=== PATIENT | female | born 1995 | race Asian ===

== ENCOUNTER 2016-10-01 18:05 | Emergency (ER) | payer OTHER ==
[~2016-10-01] VITALS: Ht 167.6 cm; Wt 57.5 kg
[2016-10-01 18:09] VITALS: TEMP 37; Ht 167.6 cm; Wt 57.5 kg
[2016-10-01] MEDS ORDERED: SODIUM CHLORIDE 0.9% 1000ML 1,000 ML IV STA (18:21)
[2016-10-01] MEDS ORDERED: HYOSCYAMINE SULFATE 0.125 MG SL TAB SL STA (18:21)
[2016-10-01 18:51] LABS: BASO % 0.9 %; BASO ABS # 0.04 K/uL (0-0.2); COMPLETE YES; EOS % 0.9 %; HEMATOCRIT 37.5 % (37-47); LYMPH % 49.4 %; LYMPH ABS # 2.32 K/uL (1.2-3.4); MEAN CELL VOLUME 90.6 fL (80-100); MEAN CORPUSCULAR HEMOGLOBIN 32.1 pg (25-34); MEAN CORPUSCULAR HGB CONC 35.5 g/dl (32-36); MEAN PLATELET VOLUME 9.7 fL (7.4-10.4); MONO % 7.2 %; NEUT % 41.6 %; PLATELET COUNT 214 K/uL (130-400); RED BLOOD COUNT 4.14 M/uL (4.2-5.4)
[2016-10-01 19:07] LABS: BUN/CREATININE RATIO 10.4 (10-20); CALCIUM 8.7 mg/dl (8.5-10.1); CREATININE 0.79 mg/dl (0.60-1.20); POTASSIUM 3.6 mmol/L (3.5-5.1)
[2016-10-01 19:46] VITALS: BP 112/81; PULSE 61; O2SAT 100
--- NOTE | 2016-10-01 19:47 | EMERGENCY ROOM VISIT NOTE ---
History Report prepared by Blaire: Alycia Ratliff Under the Supervision of: Dr. Aren Wright M.D. First contact with patient: 18:15 Chief Complaint: DIARRHEA Stated Complaint: DIARRHEA Nursing Triage Summary: Triage note: pt reports "i have serious diarrhea since last night." pt offered translation services and declined in triage. History of Present Illness The patient is a 21 year old female who presents to the Emergency Room with complaints of intermittent diarrhea beginning last night. The patient states that she has had about 8 episodes of watery diarrhea since last night. She complains of a headache and some "swelling" abdominal pain that was more severe last night. She denies any vomiting, nausea, fever, recent antibiotics, and chance of . The patient reports that she took anti-diarrheal pills and she had movement of her stomach and thinks that it might be working. She notes that she went to [place] 2 weeks ago for 3 days and was in the city. The patient states that she had a stomach bug 4 years ago with vomiting. She denies anyone around her having similar symptoms or being sick. Source of History: patient Onset: yesterday Position: other (GI) Symptom Intensity: severe Quality: other (diarrhea) Timing: intermittent Modifying Factors (Relieving): other (antidiarrheal medicine) Associated Symptoms: + abdominal pain, + headache, No fevers, No nausea, No vomiting Review of Systems See HPI for pertinent positives & negatives. A total of 10 systems reviewed and were otherwise negative. Past Medical & Surgical Medical Problems: (1) No Known Active Medical Problems Family History No pertinent family history stated. Social History Smoking Status: Never Smoker Marital Status: single Housing Status: lives with roommate Occupation Status: [employer] student Current/Historical Medications No Active Prescriptions or Reported Meds Allergies Coded Allergies: No Known Allergies (Unverified , 10/01/16) Physical Exam Vital Signs Date Time Temp Pulse Resp B/P Pulse Ox O2 Delivery O2 Flow Rate FiO2 10/01/16 18:09 37.0 79 18 121/84 97 Room Air Physical Exam Constitutional: Vital signs reviewed. Very well-appearing. Eyes: Pupils are equal round reactive to light. Conjunctiva are noninjected. ENT: Pharynx is clear without erythema or exudate. Mucous membranes are moist. Neck supple without meningeal signs. Respiratory: Clear to auscultation bilaterally. Breath sounds are equal bilaterally. Cardiovascular: Regular rate and rhythm. No rubs or gallops. GI: Soft, nondistended and nontender. Bowel sounds are present. Musculoskeletal: No peripheral edema. Integumentary: No cyanosis. Neurological: The patient is awake and alert. No focal deficits. Psychiatric: Normal affect. Medical Decision & Procedures Laboratory Results 10/01/16 18:36 Red Blood Count 4.14, Mean Corpuscular Volume 90.6, Mean Corpuscular Hemoglobin 32.1, Mean Corpuscular Hemoglobin Concent 35.5, Mean Platelet Volume 9.7, Neutrophils (%) (Auto) 41.6, Lymphocytes (%) (Auto) 49.4, Monocytes (%) (Auto) 7.2, Eosinophils (%) (Auto) 0.9, Basophils (%) (Auto) 0.9, Neutrophils # (Auto) 1.96, Lymphocytes # (Auto) 2.32, Monocytes # (Auto) 0.34, Eosinophils # (Auto) 0.04, Basophils # (Auto) 0.04 10/01/16 18:36 Test 10/01/16 18:36 White Blood Count 4.70 K/uL (4.8-10.8) Red Blood Count 4.14 M/uL (4.2-5.4) Hemoglobin 13.3 g/dL (12.0-16.0) Hematocrit 37.5 % (37-47) Mean Corpuscular Volume 90.6 fL (80-100) Mean Corpuscular Hemoglobin 32.1 pg (25-34) Mean Corpuscular Hemoglobin Concent 35.5 g/dl (32-36) Platelet Count 214 K/uL (130-400) Mean Platelet Volume 9.7 fL (7.4-10.4) Neutrophils (%) (Auto) 41.6 % Lymphocytes (%) (Auto) 49.4 % Monocytes (%) (Auto) 7.2 % Eosinophils (%) (Auto) 0.9 % Basophils (%) (Auto) 0.9 % Neutrophils # (Auto) 1.96 K/uL (1.4-6.5) Lymphocytes # (Auto) 2.32 K/uL (1.2-3.4) Monocytes # (Auto) 0.34 K/uL (0.11-0.59) Eosinophils # (Auto) 0.04 K/uL (0-0.5) Basophils # (Auto) 0.04 K/uL (0-0.2) RDW Standard Deviation 41.1 fL (36.4-46.3) RDW Coefficient of Variation 12.4 % (11.5-14.5) Immature Granulocyte % (Auto) 0.0 % Immature Granulocyte # (Auto) 0.00 K/uL (0.00-0.02) Anion Gap 9.0 mmol/L (3-11) Est Creatinine Clear Calc Drug Dose 101.4 ml/min Estimated GFR () 123.2 Estimated GFR (Non- 106.3 BUN/Creatinine Ratio 10.4 (10-20) Calcium Level 8.7 mg/dl (8.5-10.1) Laboratory results as reviewed by me. Medications Administered Medications (Trade) Dose Ordered Sig/Alyssa Route Start Time Stop Time Status Last Admin Dose Admin Sodium Chloride (Nss 1000ml) 1,000 ml @ 999 mls/hr Q1H1M STAT IV 10/01/16 18:21 10/01/16 19:21 DC 10/01/16 18:37 999 MLS/HR Hyoscyamine Sulfate (Levsin Tab) 0.125 mg NOW STAT SL 10/01/16 18:21 10/01/16 18:22 DC 10/01/16 18:30 0.125 MG ED Course 1814: The patient was evaluated in room B11. A complete history and physical exam was performed. 1820: Levsin Tab 0.125mg SL, Sodium Chloride 1000 ml @ 999 mls/hr IV. 1931: I reevaluated the patient and discussed her test results. She is not having any significant pain at this time. 1938: Upon reevaluation, the patient appeared to have improvement of her symptoms. I discussed tonight's findings with the patient. She verbalized agreement of the treatment plan. The patient was discharged home. Medical Decision This is a 21-year-old female presents with diarrhea and abdominal pain. Differential diagnosis includes dehydration, enteritis, colitis, foodborne illness, irritable bowel syndrome, inflammatory bowel disease, functional diarrhea. I did perform a limited focused review of portions of the patient's old chart on the electronic medical record. The patient has had no prior visits. I did evaluate the patient as noted above. She is presenting with mild diffuse abdominal pain without tenderness on examination. She also has had significant amount of diarrhea until she took antidiarrheal medications today. She denies being on any recent antibiotics. She did recently travel to [place] but she was in an urban environment. IV access was established. I did treat the patient with normal saline IV. She was also given Levsin. I did order and review the patient's blood work as noted in the electronic medical record. I did reassess the patient. She is not having any significant symptoms at this time. I did recommend close follow up with her doctor or [facility]. She was given return instructions as outlined below and discharged in good condition. Impression Primary Impression: Diarrhea Additional Impression: Diffuse abdominal pain Scribe Attestation The scribe's documentation has been prepared under my direct and personally reviewed by me in its entirety. I confirm that the note above accurately reflects all work, treatment, procedures, and medical decision making performed by me. Departure Information Dispostion Home / Self-Care Prescriptions No Active Prescriptions or Reported Meds Forms HOME CARE DOCUMENTATION FORM, IMPORTANT VISIT INFORMATION, WORK / SCHOOL INSTRUCTIONS Patient Instructions ED Abd Pain Unkn Cause Fem, ED Diarrhea Viral, My [facility] Additional Instructions You have been examined and treated today on an emergency basis only. This is not a substitute for, or an effort to provide, complete comprehensive medical care. It is impossible to recognize and treat all injuries or illnesses in a single emergency department visit. It is therefore important that you follow up closely with [facility]. Call as soon as possible for an appointment. Return for worsening symptoms or if you develop fever, vomiting, or any other concerning symptoms. Problem Qualifiers Primary Impression: Diarrhea Diarrhea type: unspecified type Qualified Codes: R19.7 - Diarrhea, unspecified
== END 2016-10-01 19:47 | disposition home or self-care (01) ==
LOC: C.EDB 18:08
DX: R19.7 Diarrhea, unspecified (principal); R10.84 Generalized abdominal pain